=== PATIENT | male | born 1955 | race Caucasian/White ===

== ENCOUNTER 2017-02-16 11:09 | Inpatient (IN) | payer OTHER ==
--- NOTE | 2017-02-16 11:24 | EDPHY ---
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 Ongoing problems in E since 07/2016, that started with a poorly healing wound. The patient developed cellulitis about 1 month ago. He was started on Augmentin 10 days ago. He has been following up with the wound care clinic for ongoing wound care. He continues to have severe pain and redness to the right lower extremity. The swelling around the right ankle improved, though the pain persists. He now has weeping wounds to the calf that developed after swimming 2 days ago. He denies fever. No h/o DVT. REVIEW OF SYSTEMS: A comprehensive 10 point review of systems is otherwise negative aside from elements mentioned in the history of present illness. Past Medical/Surgical History: Gout, Hypertension, Back surgery, Eye surgery Social History: Heavy alcohol use. . Lives in [place]. Smoking Status: Never smoked Physical Exam: General Appearance: Alert, pleasant Eyes: Pupils equal and round, no conjunctival pallor ENT, Mouth: Mucous membranes moist Neck: Normal inspection Respiratory: Lungs are clear to auscultation Cardiovascular: Regular rate and rhythm Gastrointestinal: Abdomen is soft and non-tender Neurological: A&O, nonfocal exam Skin: Warm and dry, maculopapular rash to upper and lower extremities Extremities: Right lower extremity: 2+ pedal pulses, diffuse calf swelling, patchy erythema and tenderness, multiple open and weeping sores on the anterior lower leg Psychiatric: Mood and affect normal Constitutional: Initial Vital Signs Temperature (C) 36.6 C 02/16/17 11:14 Heart Rate 75 02/16/17 11:14 Respiratory Rate 20 02/16/17 11:14 Blood Pressure 147/99 H 02/16/17 11:14 O2 Sat (%) 95 02/16/17 11:14 O2 Delivery Mode Room Air Allergies/Adverse Reactions: No Known Allergies Allergy (Unverified 02/16/17 11:11) Home Medications: Medication Instructions Recorded Allopurinol [Allopurinol 100 MG 100 mg PO DAILY 02/16/17 (*)] Amoxicillin/Clavulanate Pot 875 mg PO BID 02/16/17 [Augmentin 875 MG TAB (*)] Atenolol [Tenormin 100 mg (*)] 100 mg PO DAILY 02/16/17 Doxepin HCl [SINEquan 10 MG (*)] 10 mg PO HS 02/16/17 Hydrocodone/Acetaminophen [[place] 1 each PO TIDMEAL PRN 02/16/17 5/325 (*)] LORazepam [Ativan (*)] 1 mg PO DAILY 02/16/17 Medical Decision Making - Diagnostics Imaging: Discussed imaging studies w/ scallop binder Radiologist ED Course/Re-evaluation: The patient was sent by Dr. Conner for admission for ongoing right lower extremity cellulitis. Plan for lab work and US of lower extremity. The patient was started on IV Vancomycin. US is negative for DVT. 12:10 p.m.: The hospitalist service was consulted for admission. The patient will be admitted to Dr. Dunn. Differential Diagnosis: includes though not limited to DVT, osteomyelitis, abscess, septic joint - Data Points Laboratory Results: Laboratory Results 02/16/17 11:40 02/16/17 11:40 Medications Given: Discontinued Medications Chlordiazepoxide HCl (Librium) 25 mg PO TID KAVEH Stop: 08/15/17 16:44 Last Admin: 02/16/17 17:10 Dose: 25 mg Vancomycin/Sodium Chloride (Vancomycin 1 Gm (Premix)) 250 mls @ 250 mls/hr IV EDNOW ONE PRN Reason: Protocol Stop: 02/16/17 13:02 Last Admin: 02/16/17 12:19 Dose: 250 mls Lidocaine HCl (Lidocaine Hcl 1%) 20 ml NB ONCE ONE Stop: 02/16/17 16:11 Last Admin: 02/16/17 17:09 Dose: Not Given Departure - Departure Disposition: [facility] Acute Clinical Impression: Cellulitis of right lower extremity Condition: Fair Report Scribed for: Cait Gonzáles Report Scribed by: Monica Ruiz Date of Report: 02/16/17 Time of Report: 11:22 Physician Review and Approval Statement: 02/16/17 11:22 Portions of this note were transcribed by a medical assistant secretary. I personally performed the history, physical exam, and medical decision-making; and confirmed the accuracy of the information in the transcribed note.
[2017-02-16 11:50] LABS: % IMMATURE GRANULYOCYTES 0.7 % (0.0-1.1); ABSOLUTE IMMATURE GRANULOCYTES 0.05 10^3/uL (0.00-0.10); ADD DIFF? NO; ADD MORPH? NO; ADD SCAN? NO; ATYPICAL LYMPHOCYTE FLAG 0 (0-99); FRAGMENT RBC FLAG 0 (0-99); HEMATOCRIT 48.6 % (40.0-51.0); HEMOGLOBIN 16.7 g/dL (13.7-17.5); LEFT SHIFT FLG 0 (0-99); LIPEMIA HEMOLYSIS FLAG 90 (0-99); MEAN CELL HEMOGLOBIN 34.8 pg (27.9-34.1); MEAN CELL HEMOGLOBIN CONCENTR. 34.4 g/dL (32.4-36.7); MEAN CELL VOLUME 101.3 fL (81.5-99.8); MEAN PLATELET VOLUME 9.9 fL (8.7-11.7); PLATELET CLUMPS FLAG 0 (0-99); PLATELET COUNT 211 10^3/uL (150-400); RED CELL DISTRIBUTION WIDTH 12.7 % (11.5-15.2)
[2017-02-16 12:01] LABS: ANION GAP 11 mEq/L (8-16); CALCIUM 9.3 mg/dL (8.5-10.4); CARBON DIOXIDE 23 mEq/l (22-31); CHLORIDE 109 mEq/L (97-110); CREATININE 0.7 mg/dL (0.7-1.3); GLOMERULAR FILTRATION RATE > 60; GLUCOSE 98 mg/dL (70-100); SODIUM 143 mEq/L (134-144)
[2017-02-16] MEDS ORDERED: VANCOMYCIN HCL/NORMAL SALINE 250 ML IV ONE (12:03)
[2017-02-16] MEDS ORDERED: LIDOCAINE 1% *Not for Epidural 20 ML MDV NB ONE (16:10)
--- NOTE | 2017-02-16 16:13 | GHP ---
[f rep st] HISTORY AND PHYSICAL DATE OF ADMISSION: 02/16/2017 CHIEF COMPLAINT: Right leg redness and swelling. HISTORY OF PRESENT ILLNESS: This is a 61-year-old man with a history of hypertension, who was sent into the emergency department by his infectious disease doctor, Dr. Saravanan Conner, due to worsening sw elling and redness in his right leg. The patient developed an ulcer over his right ankle in July. He saw his primary care doctor, vandana burgos recommended that he wash it twice daily with antimicrobial soap. He states that the wound healed in October of this year, but continued to be very red. After the wound healed, he did notice yello w drainage from the wound. He continued to wash his leg twice a day, to clean the drainage. [place], he had increased swelling and redness. He went to the wound clinic, who thought that his s ymptoms may be due to his aggressive cleansing of his leg. He was treated with 10 days of Augmentin , which he finished on the . Since stopping the Augmentin, he has had worsening swelling, as we ll as some pain over his right dorsal foot. He denies any fevers or chills. PAST MEDICAL HISTORY: Hypertension. PAST SURGICAL HISTORY: Back surgery x3. HOME MEDICATIONS: Reviewed. Refer to [employer] for details. ALLERGIES: No known drug allergies. SOCIAL HISTORY: He lives outside [place] with his . He drinks approximately a pint of hard a lcohol and 6 beers per day. He has never had alcohol withdrawal, but he does not recall the last ti me he had sobriety. He denies any tobacco or illicit drug use. FAMILY HISTORY: Reviewed and noncontributory. REVIEW OF SYSTEMS: A comprehensive 10-point review of systems was done and was negative, except for as mentioned in the HPI. PHYSICAL EXAMINATION: GENERAL: In no acute distress. HEAD: Normocephalic, atraumatic. EYES: PE RRLA. Sclerae anicteric. MOUTH: Moist mucous membranes. NECK: Supple. No lymphadenopathy. CAR DIOVASCULAR: S1 and S2. No murmurs, rubs, clicks, gallops, or JVD. No lower extremity edema. PUL MONARY: Lungs are clear. No wheezes, rales, or rhonchi. ABDOMEN: Soft, nontender, nondistended. No guarding or rebound tenderness. Normoactive bowel sounds. EXTREMITIES: Left lower extremity i s without swelling. Right lower extremity is swollen, with erythema from the foot up to the knee. The skin is scaly. There is a healing wound over the . NEURO: Cranial nerves 2 through 12 grossly intact. No focal motor or sensory deficits. VITAL SIGNS: Reviewed. Refer to [facility] for details. DIAGNOSTICS: Lower extremity Doppler was done; however, the results are unobtainable due to [facility] h downtime. Labs also unobtainable. IMPRESSION AND PLAN: 1. This is a 61-year-old male presenting with a long history of right lower extremity wound, with s caling skin and persistent erythema, despite a 10-day course of Augmentin. Plan: The patient will be admitted to the hospital, where I have discussed the case with Dr. Saravanan muñoz from Infectious Disease, who has recommended starting IV vancomycin. Levels will be monitored . I will also consult General Surgery to obtain a skin biopsy to further evaluate for other underly ing causes of his longstanding ulcers and erythematous skin. 1. Alcohol dependence. Plan: The patient will be placed on the CIWA protocol and will start Librium. 1. The patient is high risk for venous thromboembolism and will be placed on low-molecular weight h eparin while in the hospital. /[id number]/MODL
[2017-02-16] MEDS ORDERED: chlordiazePOXIDE 25 MG CAP ONE (16:34)
[2017-02-16] MEDS ORDERED: oxyCODONE IR 5 MG TAB PO PRN (16:39)
[2017-02-16] MEDS ORDERED: chlordiazePOXIDE 25 MG CAP PO SCH (16:45)
[2017-02-16] MEDS ORDERED: POLYETHYLENE GLYCOL 3350 17 GM PKT PO PRN (17:14)
[2017-02-16] MEDS ORDERED: MAGNESIUM HYDROXIDE 30 ML UDCUP PO PRN (17:14)
[2017-02-16] MEDS ORDERED: BISACODYL 10 MG SUPP PR PRN (17:14)
[2017-02-16] MEDS ORDERED: LACTULOSE 20 GM/30 ML UDCUP PO PRN (17:14)
[2017-02-16] MEDS ORDERED: chlordiazePOXIDE 25 MG CAP PO PRN (17:31)
[2017-02-16] MEDS: HYDROCODONE/APAP 5/325 TAB PO PRN (18:04)
[2017-02-16] MEDS: ENOXAPARIN 40 MG/0.4 ML SYR SC SCH (18:05)
--- NOTE | 2017-02-16 18:40 | GPN ---
[f rep st] PROCEDURE NOTE PROCEDURE PERFORMED: Aspiration of right anterior ankle fluid collection. PREPROCEDURE DIAGNOSIS: Soft tissue fluid collection. POSTPROCEDURE DIAGNOSIS: Soft tissue fluid collection. INDICATION: The patient is a 61-year-old man who was seen at the wound healing center by Dr. Saravanan muñoz for worsening redness and swelling of his right lower extremity. He is weeping serous fluid f rom cracks in his lower extremity, and the skin is cellulitic. He has a fluid collection of the rig ht anterior medial ankle. He broke the ankle many years ago and there has always been some swelling since that time. He denies fevers or chills. He reports pain in his right lower extremity, but no ne specifically in the area of question. FINDINGS: 2 cc old heme. DESCRIPTION OF PROCEDURE: The patient was verbally consented for the procedure. A timeout was perf ormed. The right anterior medial ankle was prepped in the usual sterile fashion. I then infiltrate d with 2 cc of 1% lidocaine and aspirated 2 cc of dark red blood consistent with old heme from the c avity. I did not send this for culture. Hemostasis was achieved with direct pressure and an absorp tive bandage was applied. He tolerated the procedure well. /[id number]/MODL
[2017-02-16] MEDS: DOXEPIN HCL 10 MG CAP PO SCH (22:08)
[2017-02-16] MEDS: SENNOSIDES/DOCUSATE SODIUM TAB PO SCH (22:09)
[2017-02-16] MEDS: VANCOMYCIN 1.5 GM in D5W 250 ML IV SCH (23:58)
[2017-02-17 05:41] LABS: % IMMATURE GRANULYOCYTES 0.7 % (0.0-1.1); ABSOLUTE IMMATURE GRANULOCYTES 0.04 10^3/uL (0.00-0.10); ADD DIFF? NO; ADD MORPH? NO; ADD SCAN? NO; ATYPICAL LYMPHOCYTE FLAG 10 (0-99); FRAGMENT RBC FLAG 0 (0-99); HEMATOCRIT 43.4 % (40.0-51.0); HEMOGLOBIN 14.7 g/dL (13.7-17.5); LEFT SHIFT FLG 0 (0-99); LIPEMIA HEMOLYSIS FLAG 90 (0-99); MEAN CELL HEMOGLOBIN 34.4 pg (27.9-34.1); MEAN CELL HEMOGLOBIN CONCENTR. 33.9 g/dL (32.4-36.7); MEAN CELL VOLUME 101.6 fL (81.5-99.8); MEAN PLATELET VOLUME 10.3 fL (8.7-11.7); PLATELET CLUMPS FLAG 0 (0-99); PLATELET COUNT 179 10^3/uL (150-400); RED BLOOD CELL COUNT 4.27 10^6/uL (4.40-6.38); RED CELL DISTRIBUTION WIDTH 12.8 % (11.5-15.2)
[2017-02-17 05:51] LABS: INR 1.15 (0.83-1.16); PROTIME(PATIENT) 14.6 SEC (12.0-15.0)
[2017-02-17 05:54] LABS: ALANINE AMINOTRANSFERASE 32 IU/L (21-72); ALBUMIN 3.3 g/dL (3.5-5.0); ALKALINE PHOSPHATASE 76 IU/L (38-126); ANION GAP 6 mEq/L (8-16); ASPARTATE AMINOTRANSFERASE 28 IU/L (17-59); BILIRUBIN,TOTAL 1.2 mg/dL (0.1-1.4); CALCIUM 8.5 mg/dL (8.5-10.4); CARBON DIOXIDE 24 mEq/l (22-31); CHLORIDE 107 mEq/L (97-110); CREATININE 0.7 mg/dL (0.7-1.3); GLOMERULAR FILTRATION RATE > 60; GLUCOSE 91 mg/dL (70-100); MAGNESIUM 1.9 mg/dL (1.6-2.3); POTASSIUM 4.1 mEq/L (3.5-5.2); SODIUM 137 mEq/L (134-144); TOTAL PROTEIN 6.6 g/dL (6.3-8.2)
[2017-02-17] MEDS: ALLOPURINOL 100 MG TAB PO SCH (07:38)
[2017-02-17] MEDS: FOLIC ACID 1 MG TAB PO SCH (07:38)
[2017-02-17] MEDS: HYDROCODONE/APAP 5/325 TAB PO PRN ×3 (07:39→16:54)
[2017-02-17] MEDS: THIAMINE HCL 100 MG TAB PO SCH (07:39)
[2017-02-17] MEDS: LORazepam 1 MG TAB PO SCH (07:39)
[2017-02-17] MEDS: ENOXAPARIN 40 MG/0.4 ML SYR SC SCH (07:40)
[2017-02-17] MEDS: ATENOLOL 100 MG TAB PO SCH (07:40)
[2017-02-17] MEDS: SENNOSIDES/DOCUSATE SODIUM TAB PO SCH ×2 (07:42→19:50)
--- NOTE | 2017-02-17 08:45 | SOAPPROG ---
SOAP Progress Note Assessment/Plan: Assessment: s/p aspiration of fluid collection by Right medial malleolus. 2 cc of blood Cellulitus improved today Surgery will be on standby Plan: 02/17/17 08:44 Objective: Vital Signs Temp Pulse Resp BP Pulse Ox 36.7 C 72 18 148/89 H 93 02/17/17 08:09 02/17/17 08:09 02/17/17 08:09 02/17/17 08:09 02/17/17 08:09 Laboratory Results 02/17/17 05:17 02/17/17 05:17 02/16/17 02/17/17 02/18/17 05:59 05:59 05:59 Intake Total 200 Output Total 175 Balance 25 PT 14.6 SEC (12.0-15.0) 02/17/17 05:17 INR 1.15 (0.83-1.16) 02/17/17 05:17 ICD10 Worksheet Patient Problems: Problems Problem Status Onset Cellulitis of right lower extremity Acute
--- NOTE | 2017-02-17 09:01 | HOSPPROG ---
Hospitalist Progress Note Assessment/Plan: #Right ankle fluid collection/cellulitis: s/p drainage. Cont IV vanc, monitor levels #Alcohol abuse: CIWA #Acute ankle pain: PRN oxycodone #Diet: regular #DVT ppx: Lovenox #Disp: warrants inpatient admission with LE cellulitis requiring IV abx, monitor vanc levels Objective: Vital Signs Temp Pulse Resp BP Pulse Ox 36.7 C 72 18 148/89 H 93 02/17/17 08:09 02/17/17 08:09 02/17/17 08:09 02/17/17 08:09 02/17/17 08:09 Laboratory Results 02/17/17 05:17 02/17/17 05:17 02/16/17 02/17/17 02/18/17 05:59 05:59 05:59 Intake Total 200 Output Total 175 Balance 25 PT 14.6 SEC (12.0-15.0) 02/17/17 05:17 INR 1.15 (0.83-1.16) 02/17/17 05:17 ICD10 Worksheet Patient Problems: Problems Problem Status Onset Cellulitis of right lower extremity Acute
[2017-02-17 11:29] VITALS: O2SAT 94
[2017-02-17] MEDS: VANCOMYCIN 1.5 GM in D5W 250 ML IV SCH ×2 (12:02→23:00)
[2017-02-17] MEDS: CHOLECALCIFEROL VIT D3 1,000 UNITS TAB PO SCH (12:20)
--- NOTE | 2017-02-17 15:43 | PCMIDPN ---
Assessment/Plan: Assessment: Right lower extremity cellulitis. Appears to be somewhat improved today with less intense erythema. The upper part of the right lower extremity especially appears to have retracted the borders the erythema. The size of the leg is also decreased. Plan: 1. Continue IV vancomycin monotherapy. 2. PICC line placement. 3. Prepare for discharge home with continue IV antibiotic and follow up as outpatient. 02/18/17 08:30 Subjective: Patient states that his right lower extremity is feeling somewhat better. Notes that the size the leg is decreased. No fevers or chills. Tolerating vancomycin without issue. Objective: Vancomycin #1 Vital Signs Temp Pulse Resp BP Pulse Ox 36.7 C 66 18 121/74 H 94 02/17/17 15:05 02/17/17 15:05 02/17/17 15:05 02/17/17 15:05 02/17/17 15:05 Laboratory Results 02/17/17 05:17 02/17/17 05:17 02/16/17 02/17/17 02/18/17 05:59 05:59 05:59 Intake Total 200 Output Total 175 Balance 25 - Physical Exam General Appearance: WD/WN, alert, no apparent distress, non-toxic Respiratory: lungs clear, normal breath sounds, No respiratory distress Cardiac/Chest: regular rate, rhythm, No tachycardia Extremities: No non-tender, No normal inspection Skin: normal color, warm/dry, rash Neuro/Psych: alert, normal mood/affect ICD10 Worksheet Patient Problems: Problems Problem Status Onset Cellulitis of right lower extremity Acute
[2017-02-17] MEDS ORDERED: ALTEPLASE 2 MG VIAL IVP PRN (15:45)
--- NOTE | 2017-02-17 15:45 | PDIAF ---
- Diagnosis Diagnosis: RLE cellulitis - Medication Management Discharge Medications: Medications to Continue on Transfer Allopurinol [Allopurinol 100 MG (*)] 100 mg PO DAILY 02/16/17 [Last Taken ] Amoxicillin/Clavulanate Pot [Augmentin 875 MG TAB (*)] 875 mg PO BID 02/16/17 [ Last Taken 02/16/17] Atenolol [Tenormin 100 mg (*)] 100 mg PO DAILY 02/16/17 [Last Taken 02/16/17] Doxepin HCl [SINEquan 10 MG (*)] 10 mg PO HS 02/16/17 [Last Taken 02/15/17] Hydrocodone/Acetaminophen [[place] 5/325 (*)] 1 each PO TIDMEAL PRN 02/16/17 [ Last Taken 02/16/17] LORazepam [Ativan (*)] 1 mg PO DAILY 02/16/17 [Last Taken 02/16/17] Cholecalciferol Vit D3 [Vitamin D3 (*)] 1,000 units PO DAILY 02/17/17 [Last Taken Unknown] Vitamin B Complex [B Complex] 1 each PO DAILY 02/17/17 [Last Taken Unknown] Reservations And Ticketing Agent Antibiotics: Vancomycin 1.5 g IV q 12 hours Reservations And Ticketing Agent Antibiotic Stop Date: 02/28/17 Discharge Medications: Refer to the Discharge Home Medication list for PRN reason. PICC Care - Routine: Yes - Orders Services needed: Registered Nurse - Labs/Radiology CBC Date: 02/21/17 (weekly) CMP Date: 02/21/17 (weekly) Vanco Trough Date and Time: 02/21/17 and q mon and thurs thereafter Call or Fax Lab and Imaging Results to: Dr. Saravanan Conner - Follow Up Care Current Providers and Referrals: Rebecca Rodriguez MD [Primary Care Provider] - As per Instructions
[2017-02-17] MEDS: DOXEPIN HCL 10 MG CAP PO SCH (19:50)
[2017-02-18] MEDS: HYDROCODONE/APAP 5/325 TAB PO PRN ×2 (04:45→12:26)
[2017-02-18 05:08] LABS: ANION GAP 6 mEq/L (8-16); CALCIUM 8.4 mg/dL (8.5-10.4); CARBON DIOXIDE 24 mEq/l (22-31); CHLORIDE 108 mEq/L (97-110); CREATININE 0.6 mg/dL (0.7-1.3); GLOMERULAR FILTRATION RATE > 60; GLUCOSE 91 mg/dL (70-100); MAGNESIUM 1.9 mg/dL (1.6-2.3); POTASSIUM 3.9 mEq/L (3.5-5.2); SODIUM 138 mEq/L (134-144)
[2017-02-18] MEDS: ALLOPURINOL 100 MG TAB PO SCH (07:43)
[2017-02-18] MEDS: ATENOLOL 100 MG TAB PO SCH (07:43)
[2017-02-18] MEDS: LORazepam 1 MG TAB PO SCH (07:43)
[2017-02-18] MEDS: CHOLECALCIFEROL VIT D3 1,000 UNITS TAB PO SCH (07:44)
[2017-02-18] MEDS: ENOXAPARIN 40 MG/0.4 ML SYR SC SCH (07:45)
[2017-02-18] MEDS: THIAMINE HCL 100 MG TAB PO SCH (07:45)
[2017-02-18] MEDS: FOLIC ACID 1 MG TAB PO SCH (07:45)
[2017-02-18 07:50] VITALS: BP 131/85; PULSE 69; RESP 16; TEMP 98.2
[2017-02-18] MEDS ORDERED: VITAMIN B COMPLEX 1 EA CAP/TAB PO SCH (09:00)
[2017-02-18] MEDS ORDERED: VANCOMYCIN 1.5 GM in D5W 250 ML IV SCH (09:00)
[2017-02-18] MEDS ORDERED: VANCOMYCIN 1.25 GM in D5W 250 ML IV SCH (09:00)
--- NOTE | 2017-02-18 09:22 | PDIAF ---
- Diagnosis Diagnosis: RLE cellulitis - Medication Management Discharge Medications: Medications to Continue on Transfer Allopurinol [Allopurinol 100 MG (*)] 100 mg PO DAILY 02/16/17 [Last Taken ] Amoxicillin/Clavulanate Pot [Augmentin 875 MG TAB (*)] 875 mg PO BID 02/16/17 [ Last Taken 02/16/17] Atenolol [Tenormin 100 mg (*)] 100 mg PO DAILY 02/16/17 [Last Taken 02/16/17] Doxepin HCl [SINEquan 10 MG (*)] 10 mg PO HS 02/16/17 [Last Taken 02/15/17] Hydrocodone/Acetaminophen [[place] 5/325 (*)] 1 each PO TIDMEAL PRN 02/16/17 [ Last Taken 02/16/17] LORazepam [Ativan (*)] 1 mg PO DAILY 02/16/17 [Last Taken 02/16/17] Cholecalciferol Vit D3 [Vitamin D3 (*)] 1,000 units PO DAILY 02/17/17 [Last Taken Unknown] Vitamin B Complex [B Complex] 1 each PO DAILY 02/17/17 [Last Taken Unknown] Mock Up Builder Antibiotics: Vancomycin 1.25 g IV q 12 hours Correction Antibiotic Stop Date: 02/28/17 Discharge Medications: Refer to the Discharge Home Medication list for PRN reason. PICC Care - Routine: Yes - Orders Services needed: Registered Nurse - Labs/Radiology CBC Date: 02/21/17 (weekly) CMP Date: 02/21/17 (weekly) Vanco Trough Date and Time: 02/21/17 and q mon and thurs thereafter Call or Fax Lab and Imaging Results to: Dr. Saravanan Conner - Follow Up Care Current Providers and Referrals: Rebecca Rodriguez MD [Primary Care Provider] - As per Instructions Saravanan Conner MD [Medical Doctor] - (Patient has an appointment with Dr. Conner March 02 at 1:30 p.m.)
--- NOTE | 2017-02-18 09:24 | PCMIDPN ---
Assessment/Plan: 1. Right lower extremity cellulitis: Marked improvement. Continue vancomycin, but will lower dose to 1.25 g IV q.12 hours. Inter agency form already filled out by my colleague, Dr. Conner. I did change the dose. He has a follow-up appointment to see Dr. Conner March 02 at 1:30 p.m.. Patient understands the importance of keeping his right lower extremity elevated when he goes home. Subjective: Eager to go home. Had PICC line inserted last night. Objective: Vancomycin 1.5 g IV q.12 hours day 2. Afebrile Vital Signs Temp Pulse Resp BP Pulse Ox 36.8 C 69 16 131/85 H 94 02/18/17 07:48 02/18/17 07:48 02/18/17 07:48 02/18/17 07:48 02/18/17 07:48 Laboratory Results 02/17/17 05:17 02/18/17 04:40 02/17/17 02/18/17 02/19/17 05:59 05:59 05:59 Intake Total 200 550 Output Total 175 Balance 25 550 no microbiology data - Physical Exam General Appearance: alert, no apparent distress Extremities: other ( right lower extremity with faint erythema visible. Ezcematous changes diffusely right lower extremity. Erythema is receding inside margins. No significant edema.) ICD10 Worksheet Patient Problems: Problems Problem Status Onset Cellulitis of right lower extremity Acute
[2017-02-18] MEDS: SENNOSIDES/DOCUSATE SODIUM TAB PO SCH (09:48)
--- NOTE | 2017-02-18 17:34 | HOSPPROG ---
Hospitalist Progress Note Assessment/Plan: #Right ankle fluid collection/cellulitis: s/p drainage. Cont IV vanc throught 02/28/17. JOHN Conner #Alcohol abuse: CIWA #Acute ankle pain: PRN oxycodone #Diet: regular #DVT ppx: Lovenox #Disp: DC with IV abx Subjective: pain in leg improved Objective: Vital Signs Temp Pulse Resp BP Pulse Ox 36.8 C 69 16 131/85 H 94 02/18/17 07:48 02/18/17 07:48 02/18/17 07:48 02/18/17 07:48 02/18/17 07:48 Laboratory Results 02/17/17 05:17 02/18/17 04:40 02/17/17 02/18/17 02/19/17 05:59 05:59 05:59 Intake Total 200 550 Output Total 175 Balance 25 550 PT 14.6 SEC (12.0-15.0) 02/17/17 05:17 INR 1.15 (0.83-1.16) 02/17/17 05:17 - Physical Exam Constitutional: no apparent distress Eyes: PERRL Ears, Nose, Mouth, Throat: moist mucous membranes Cardiovascular: regular rate and rhythym, no murmur, rub, or gallop Respiratory: no respiratory distress Gastrointestinal: normoactive bowel sounds Genitourinary: no bladder fullness Skin: other (right leg with less erythema. Yellow, dry skin at ankle. Decreased warmth. Min TTP) ICD10 Worksheet Patient Problems: Problems Problem Status Onset Cellulitis of right lower extremity Acute
--- NOTE | 2017-02-18 22:37 | GDS ---
[f rep st] DISCHARGE SUMMARY DISCHARGE DIAGNOSES: 1. Right lower extremity cellulitis. 2. Alcohol abuse. 3. Right ankle pain. HISTORY OF PRESENT ILLNESS: The patient is a 61-year-old male with history of hypertension, alcoholism, who presented to the emergency room from his infectious disease doctor, Dr. Conner, due to worsening swelling and redness in the right leg. He developed ulcer over the right ankle in July and saw his primary care doctor who recommended he wash it twice a day with antimicrobial soap. Wound healed in October of this year but then continued to be very red. He then noticed yellow drainage. Around [facility], he had increased swelling and redness. He went to the Wound Clinic. He was treated with 10 days' of Augmentin. Since completing that medication, he has had worsening swelling and pain. HOSPITAL COURSE BY PROBLEM: 1. Purulent right lower extremity cellulitis: The patient was initiated on IV vancomycin with improvement.Continue this through February 28 per Infectious Disease. Follow up with Dr. Conner on March 02. The patient remained afebrile without leukocytosis. DVT was negative of the lower extremity. 2. Acute ankle pain secondary to infection: Surgery was consulted to tap it and was only able to withdraw blood. 3. Benign hypertension: Continue home medications. 4. Gout: Allopurinol. DISPOSITION: Patient stable for discharge. MEDICATIONS: Vancomycin through February 28, 2017. FOLLOWUP: With Dr. Conner, March 02. /[id number]/MODL MTDD
== END 2017-02-18 12:35 | disposition home health service (06) | DRG 603 ==
LOC: F3E 13:33
PROVIDERS: ADMIT Family Medicine; ATTEND Internal Medicine
PROC: 0S9F3ZX Drainage of Right Ankle Joint, Percutaneous Approach, Diagnostic (ICD-10-PCS; principal; 2017-02-16)
PROC: 02HV33Z Insertion of Infusion Device into Superior Vena Cava, Percutaneous Approach (ICD-10-PCS; 2017-02-17)
DX: L03.115 Cellulitis of right lower limb (principal); F10.20 Alcohol dependence, uncomplicated; I10 Essential (primary) hypertension; M10.9 Gout, unspecified
CPT/HCPCS: 96365; C1751; J1650; J3370

== ENCOUNTER → 2017-03-24 | Outpatient (CLI) | payer OTHER | LOC: FIMAGING 08:10 | PROVIDERS: ATTEND Internal Medicine Infectious Disease | DX: I87.2 Venous insufficiency (chronic) (peripheral) (principal); L30.8 Other specified dermatitis ==

== ENCOUNTER 2017-04-26 07:30 | Day surgery (SDC) | payer OTHER ==
[2017-04-26] MEDS ORDERED: LIDO/EPI 1% **for epidural** 30 ML SDV ONE (07:45)
[2017-04-26] MEDS ORDERED: SODIUM TETRADECYL SULFATE 60 MG/2 ML VIAL IV ONE (07:45)
[2017-04-26] MEDS ORDERED: NS 1,000 ML IV ONE (07:55)
[2017-04-26] MEDS ORDERED: ONDANSETRON 4 MG/2 ML VIAL IVP ONE (07:55)
[2017-04-26] MEDS ORDERED: IOPAMIDOL (ISOVUE-300) 100 ML BTL ONE (08:05)
[2017-04-26] MEDS ORDERED: MIDAZOLAM 2 MG/2 ML VIAL ONE ×4 (09:17→10:48)
[2017-04-26] MEDS ORDERED: fentaNYL 100 MCG/2 ML INJ ONE ×4 (09:17→10:48)
[2017-04-26] MEDS ORDERED: HYDROCODONE/APAP 5/325 TAB ONE ×2 (12:12→14:49)
== END 2017-04-26 16:25 | disposition home health service (06) ==
LOC: FIMAGING 07:30
PROVIDERS: ATTEND Radiology Diagnostic Radiology
PROC: 06HM33Z Insertion of Infusion Device into Right Femoral Vein, Percutaneous Approach (ICD-10-PCS; principal; 2017-04-26 12:00)
PROC: 3E033TZ Introduction of Destructive Agent into Peripheral Vein, Percutaneous Approach (ICD-10-PCS; principal; 2017-04-26 12:00)
PROC: 065R3ZZ (ICD-10-PCS; principal; 2017-04-26 12:00)
DX: I83.811 Varicose veins of right lower extremity with pain (principal); I87.2 Venous insufficiency (chronic) (peripheral); L30.8 Other specified dermatitis
CPT/HCPCS: 36470; 36478; 75820; 99152; 99153; C1769; C1892; C1894; J2250; J3010; Q9967

== ENCOUNTER → 2017-06-21 | Outpatient (CLI) | payer OTHER | LOC: FIMAGING 12:05 | PROVIDERS: ATTEND Radiology Diagnostic Radiology | DX: L98.9 Disorder of the skin and subcutaneous tissue, unspecified (principal) ==

== ENCOUNTER → 2017-11-10 | Outpatient (CLI) | payer OTHER | LOC: FIMAGING 07:12 | PROVIDERS: ATTEND Radiology Diagnostic Radiology | DX: I83.023 Varicose veins of left lower extremity with ulcer of ankle (principal); I83.891 Varicose veins of right lower extremity with other complications ==

== ENCOUNTER → 2017-12-02 | Day surgery (SDC) | payer OTHER ==
[~2017-12-02] MED LIST: ALTEPLASE 2 MG VIAL IVP PRN; DEXMEDETOMIDINE HCL 200 MCG in NS 50 ML IV ONE; FLUMAZENIL 0.5 MG/5 ML MDV IVP PRN; GLUCAGON HCL 1 MG VIAL IVP PRN; HEPARIN 10,000 UNIT/10 ML MDV (1,000 UNIT/ML) IVP PRN; HYDROCODONE/APAP 5/325 TAB PO PRN; IBUPROFEN 200 MG TAB PO ONE; LIDO/EPI 1% **for epidural** 30 ML SDV ONE; MEPERIDINE 25 MG/ML SYR IVP PRN; MIDAZOLAM 2 MG/2 ML VIAL IVP PRN; NALOXONE HCL 0.4 MG/ML INJ IVP PRN; NS 1,000 ML IV ONE; NS 1,000 ML IV SCH; ONDANSETRON 4 MG/2 ML VIAL IVP ONE; ONDANSETRON DISINTEGRATING 4 MG TAB PO PRN; PROTAMINE SULFATE 50 MG/5 ML VIAL IVP PRN; SODIUM TETRADECYL SULFATE 3% 2 ML VIAL IV ONE; ceFAZolin 2 GM/SWFI 2 GM/20 ML SYR IVP ONE; fentaNYL 100 MCG/2 ML INJ IVP PRN
--- NOTE | 2017-12-02 08:37 | PDPROPOC ---
Sedation Plan of Care Sedation Plan of Care: vital signs stable, mental status noted, patient educated of risks, benefits, alternatives, patient can tolerate sedation ASA Classification: ASA 3 Planned drugs: fentanyl, midazolam Mallampati Score: Class 2 Mallampati Reference Image: Patient passed 3-3-2 rule?: Yes
--- NOTE | 2017-12-02 08:40 | PDGENHP ---
History & Physical Chief Complaint: LT LEG ULCERS History of Present Illness: S/P LT LEG LASER. ULCER BETTER, BUT NOW WITH SEVERE VARICOSITIES AND LEG PAIN BILATERALLY. Pertinent Past, Social, Family History: SLEEP APNEA, ETOH, 3 BACK SURGERIES, EYE SURGERY, HTN, GIARDIA, ARTHRITIS, DJD, CHRONIC PAIN. Relevant Physical Exam: LT LEG ULCE MEDIAL ANKLE. ROPEY VARICOSE VEINS. Cardiorespiratory Assessment: RRR, CTA
--- NOTE | 2017-12-02 11:59 | PDRADPN ---
Radiology Procedure Note Date of Procedure: 12/02/17 Radiologist: Rowan Bello Anesthesia: IV Sedation Pre-op Diagnosis: LLE CELLULISTIS AND ULCER Post-op Diagnosis: SAME Indication: ACTIVE ULCER Procedure: LASER, PHLEBECTOMY, SCLEROTHERAPY Finding(s): SEE REPORT Inf/Abcess present in the surg proc area at time of surgery?: No Complications: NONE
[2017-12-02 12:35] VITALS: PULSE 63; RESP 18; TEMP 97.9
[2017-12-02 15:28] VITALS: BP 121/80; O2SAT 93
== END | disposition home or self-care (01) ==
LOC: FIMAGING 07:21
PROVIDERS: ATTEND Radiology Diagnostic Radiology
PROC: 06DY3ZZ Extraction of Lower Vein, Percutaneous Approach (ICD-10-PCS; principal; 2017-12-02 09:00)
PROC: 3E033TZ Introduction of Destructive Agent into Peripheral Vein, Percutaneous Approach (ICD-10-PCS; principal; 2017-12-02 09:00)
PROC: 065Q3ZZ Destruction of Left Saphenous Vein, Percutaneous Approach (ICD-10-PCS; principal; 2017-12-02 09:00)
DX: I83.023 Varicose veins of left lower extremity with ulcer of ankle (principal); L97.329 Non-pressure chronic ulcer of left ankle with unspecified severity; L03.116 Cellulitis of left lower limb; I83.812 Varicose veins of left lower extremity with pain; G47.33 Obstructive sleep apnea (adult) (pediatric); I10 Essential (primary) hypertension; G89.29 Other chronic pain
CPT/HCPCS: J0690; J2250; J2310; J3010

== ENCOUNTER 2018-02-15 09:05 | Day surgery (SDC) | payer OTHER ==
[2018-02-15] MEDS ORDERED: MIDAZOLAM 2 MG/2 ML VIAL IVP PRN (09:54)
[2018-02-15] MEDS ORDERED: HEPARIN 10,000 UNIT/10 ML MDV (1,000 UNIT/ML) IVP PRN (09:54)
[2018-02-15] MEDS ORDERED: fentaNYL 100 MCG/2 ML INJ IVP PRN (09:54)
[2018-02-15] MEDS ORDERED: ONDANSETRON 4 MG/2 ML VIAL IVP ONE (09:54)
[2018-02-15] MEDS ORDERED: ceFAZolin 2 GM/SWFI 2 GM/20 ML SYR IVP ONE (09:54)
[2018-02-15] MEDS ORDERED: PROTAMINE SULFATE 50 MG/5 ML VIAL IVP PRN (09:54)
[2018-02-15] MEDS ORDERED: ALTEPLASE 2 MG VIAL IVP PRN (09:54)
[2018-02-15] MEDS ORDERED: GLUCAGON HCL 1 MG VIAL IVP PRN (09:54)
[2018-02-15] MEDS ORDERED: NS 1,000 ML IV ONE (09:54)
[2018-02-15] MEDS ORDERED: NALOXONE HCL 0.4 MG/ML INJ IVP PRN (09:54)
[2018-02-15] MEDS ORDERED: MEPERIDINE 25 MG/ML SYR IVP PRN (09:54)
[2018-02-15] MEDS ORDERED: FLUMAZENIL 0.5 MG/5 ML MDV IVP PRN (09:54)
[2018-02-15] MEDS ORDERED: DEXMEDETOMIDINE HCL 200 MCG in NS 50 ML IV ONE (10:30)
[2018-02-15] MEDS ORDERED: LIDO/EPI 1% **for epidural** 30 ML SDV ONE (11:19)
[2018-02-15] MEDS ORDERED: SODIUM TETRADECYL SULFATE 3% 2 ML VIAL IV ONE (11:19)
--- NOTE | 2018-02-15 11:21 | PDGENHP ---
History & Physical Chief Complaint: FINISHING TREATMENT FOR RT LEG; EVALUATE LT LEG History of Present Illness: S/P BILATERAL LASER, SCLEROTHERAPY; S/P LT PHLEBECTOMY. COMPLETION TREATMENT NEEDED FOR RT. PATIENT HAS NOT COMPLETELY HEALED LT ULCER AND CELLULITIS. WILL CHECK LT VESSELS WELL. Pertinent Past, Social, Family History: N/A. HAS BEEN SEEING WOUND CARE CLINIC. Relevant Physical Exam: LLE CELLULITIS AND MILD ULCERATION. RT BROWNISH DISCOLORATION AND BULDGING VARICOSE VEINS. Cardiorespiratory Assessment: RRR, CTA
[2018-02-15] MEDS ORDERED: MIDAZOLAM 2 MG/2 ML VIAL ONE ×2 (11:53→11:54)
[2018-02-15] MEDS ORDERED: fentaNYL 100 MCG/2 ML INJ ONE (11:54)
[2018-02-15] MEDS ORDERED: IBUPROFEN 200 MG TAB PO ONE (13:26)
[2018-02-15] MEDS ORDERED: ONDANSETRON 4 MG/2 ML VIAL IVP PRN (13:26)
[2018-02-15] MEDS ORDERED: OXYCODONE/APAP 5/325 TAB PO PRN (13:27)
--- NOTE | 2018-02-15 13:29 | PDRADPN ---
Radiology Procedure Note Date of Procedure: 02/15/18 Radiologist: Rowan Bello Anesthesia: IV Sedation Pre-op Diagnosis: bilateral LE ulcers and cellulitis Post-op Diagnosis: same Indication: Follow up treatment to both legs Procedure: laser and sclerotherapy, bilateral; RT 4 stab phlebectomy Finding(s): see report Inf/Abcess present in the surg proc area at time of surgery?: No Complications: none
[2018-02-15] MEDS ORDERED: NS 1,000 ML IV SCH (13:30)
[2018-02-15 16:59] VITALS: BP 130/84
== END 2018-02-15 16:39 | disposition home or self-care (01) ==
LOC: FIMAGING 09:05
PROVIDERS: ATTEND Radiology Diagnostic Radiology
DX: I83.022 Varicose veins of left lower extremity with ulcer of calf (principal); I83.91 Asymptomatic varicose veins of right lower extremity; L97.221 Non-pressure chronic ulcer of left calf limited to breakdown of skin; L97.321 Non-pressure chronic ulcer of left ankle limited to breakdown of skin; Z86.19 Personal history of other infectious and parasitic diseases; L03.116 Cellulitis of left lower limb
CPT/HCPCS: J0690; J2250; J3010

== ENCOUNTER → 2018-03-01 | Outpatient (CLI) | payer OTHER | LOC: FIMAGING 16:04 | PROVIDERS: ATTEND Radiology Diagnostic Radiology | DX: I83.893 Varicose veins of bilateral lower extremities with other complications (principal); L03.115 Cellulitis of right lower limb ==